=== PATIENT | male | born 1975 | race Caucasian/White ===

== ENCOUNTER 2017-12-30 16:38 | Inpatient (IN) | payer MEDICAID ==
[2017-12-30] MEDS ORDERED: Sodium Chloride 0.9% 1,000 ML IV ONE ×2 (16:50→17:55)
[2017-12-30] MEDS ORDERED: LORazepam 2 MG/ML MDV IVPUSH ONE (16:58)
[2017-12-30] MEDS ORDERED: Acetaminophen 325 MG Tab PO PRN (18:19)
[2017-12-30] MEDS ORDERED: Ibuprofen 400 MG Tab PO PRN (18:19)
[2017-12-30] MEDS ORDERED: Zolpidem 5 MG Tab PO PRN (18:19)
[2017-12-30] MEDS ORDERED: Magnesium Oxide 400 MG Tab PO ONE (18:29)
[2017-12-30] MEDS ORDERED: Metoprolol Tartrate 25 MG Tab PO PRN (18:29)
[2017-12-30] MEDS ORDERED: Sodium Chloride 0.9% 10 ML Syringe FLUSH PRN ×2 (18:29)
[2017-12-30] MEDS ORDERED: cloNIDine 0.1 MG Tab PO PRN (18:29)
[2017-12-30] MEDS ORDERED: Thiamine 200 MG/2 ML MDV IM ONE (18:29)
[2017-12-30] MEDS ORDERED: Pantoprazole 40 MG Vial IV SCH (18:30)
[2017-12-30] MEDS ORDERED: chlordiazePOXIDE 25 MG Cap PO SCH ×2 (18:30)
[2017-12-30] MEDS: Dextrose 5%-0.9% NaCl 1,000 ML IV SCH (19:10)
[2017-12-30] MEDS: Potassium Chloride 10% 20 MEQ/15 ML Soln 15 ML UD Cup PO SCH (20:22)
[2017-12-31] MEDS: Dextrose 5%-0.9% NaCl 1,000 ML IV SCH ×2 (03:07→11:49)
[2017-12-31] MEDS: Potassium Chloride 10% 20 MEQ/15 ML Soln 15 ML UD Cup PO SCH ×2 (08:17→22:27)
[2017-12-31] MEDS: Folic Acid 1 MG Tab PO SCH (08:17)
[2017-12-31] MEDS: Multivitamin Tab PO SCH (08:17)
--- NOTE | 2017-12-31 08:21 | PCM.HP ---
H&P History of Present Illness - General Date of Service: 12/31/17 Admit Problem/Dx: Admission Diagnosis/Problem Admission Diagnosis/Problem Alcohol dependence with withdrawal with perceptual disturbance Source of Information: Patient History Limitations: Reports: Altered Mental Status - History of Present Illness Initial Comments - Free Text/Narative: This is a 42-year-old male patient but states that he was brought from [place] in [place] to be placed in the hospital. He does not know why. The nurses states that he was he was in intermediate and started having what the please felt as DTs was brought here for withdrawal. Patient states he drinks 6 beers every day and 12 on Saturdays and Sundays. He denies smoking or recreational drug use. He' s been in treatment several years ago. He says he is quit drinking several times in the past without any problems. Patient states he feels guilty for drinking, says others criticize his drinking. He denies eating and I'll put her. - Related Data Allergies/Adverse Reactions: Allergies Allergy/AdvReac Type Severity Reaction Status Date / Time No Known Allergies Allergy Verified 12/30/17 17:44 Home Medications: Home Meds NK [No Known Home Meds] 04/15/14 [History] Past Medical History - Past Health History Medical/Surgical History: Denies Medical/Surgical History Other Psychiatric History: does not take any meds anymore Social & Family History - Family History Family Medical History: Unobtainable Psychiatric: Reports: Suicide Attempt, Other (See Below) Other Psychiatric Family History: MOTHER COMMITTED SUICIDE - Tobacco Use Smoking Status *Q: Never Smoker Years of Tobacco use: 25 Second Hand Smoke Exposure: No - Caffeine Use Caffeine Use: Reports: None - Alcohol Use Days Per Week of Alcohol Use: 7 Number of Drinks Per Day: 6 Total Drinks Per Week: 42 Date of Last Drink: 12/26/17 Time of Last Drink: 21:00 - Recreational Drug Use Recreational Drug Use: No H&P Review of Systems - Review of Systems: Review Of Systems: See Below General: Reports: No Symptoms HEENT: Reports: No Symptoms Pulmonary: Reports: No Symptoms Cardiovascular: Reports: No Symptoms Gastrointestinal: Reports: No Symptoms Genitourinary: Reports: No Symptoms Musculoskeletal: Reports: No Symptoms Skin: Reports: No Symptoms Psychiatric: Reports: No Symptoms Neurological: Reports: No Symptoms Hematologic/Lymphatic: Reports: No Symptoms Immunologic: Reports: No Symptoms Exam - Exam Exam: See Below - Vital Signs Vital Signs: Last Vital Signs Temp 97.6 F 12/31/17 07:27 Pulse 98 12/31/17 07:27 Resp 16 12/31/17 07:27 BP 120/77 12/31/17 07:27 Pulse Ox 99 12/31/17 07:27 Weight: 149 lb 7 oz - Exam General: Alert, Cooperative. No: Oriented HEENT: Hearing Intact, Posterior Pharynx Clear, TMs Clear Neck: Supple, Trachea Midline Lungs: Clear to Auscultation, Normal Respiratory Effort. No: Crackles, Rales, Rhonchi Cardiovascular: Regular Rate, Regular Rhythm. No: Systolic Murmur, Diastolic Murmur GI/Abdominal Exam: Normal Bowel Sounds, Soft, Non-Tender, No Organomegaly, No Distention, No Abnormal Bruit, No Mass Back Exam: Normal Inspection, Full Range of Motion Extremities: Normal Inspection, Normal Range of Motion, No Pedal Edema Skin: Warm, Dry, Intact Neurological: Normal Tone Neuro Extensive - Mental Status: Alert, Normal Mood/Affect, Other (Patient is oriented to place. He thinks it is February and the president is [employer].). No: Oriented x3, Normal Cognition Psychiatric: Alert, Normal Affect, Normal Mood - Patient Data Lab Results Last 24 hrs: Laboratory Results - last 24 hr 12/31/17 12/31/17 12/31/17 Range/Units 05:50 06:00 06:00 Sodium 139 (135-145) mmol/L Potassium 3.0 L (3.5-5.3) mmol/L Chloride 106 D (100-110) mmol/L Carbon Dioxide 24 (21-32) mmol/L BUN 11 D (7-18) mg/dL Creatinine 0.6 L (0.70-1.30) mg/dL Est Cr Clr Drug Dosing 150.63 mL/min Estimated GFR (MDRD) > 60 (>60) BUN/Creatinine Ratio 18.3 (9-20) Glucose 108 (80-116) mg/dL Calcium 8.6 D (8.6-10.2) mg/dL Total Bilirubin 1.1 (0.1-1.3) mg/dL AST 67 H D (5-25) IU/L ALT 94 H D (12-36) U/L Alkaline Phosphatase 52 L (56-112) IU/L Total Protein 5.8 L (6.0-8.0) g/dL Albumin 3.1 L (3.5-5.2) g/dL Globulin 2.7 g/dL Albumin/Globulin Ratio 1.2 Urine Color Yellow (YELLOW) Urine Appearance Clear (CLEAR) Urine pH 6.0 (5.0-6.5) Ur Specific [place] 1.015 (1.010-1.025) Urine Protein Negative (NEGATIVE) mg/dL Urine Glucose (UA) Normal (NEGATIVE) mg/dL Urine Ketones 15 H (NEGATIVE) mg/dL Urine Occult Blood Negative (NEGATIVE) Urine Nitrite Negative (NEGATIVE) Urine Bilirubin Negative (NEGATIVE) Urine Urobilinogen 1 H (NEGATIVE) mg/dL Ur Leukocyte Esterase Negative (NEGATIVE) Urine RBC 0-5 (0) Urine WBC 5-10 (0) Ur Squamous Epith Cells Few H (NS,R,O) Urine Bacteria Rare H (NS) Hyaline Casts Few H (NS) Coarse Granular Casts Few H (NS) Urine Mucus Few H (NS) Urine Opiates Screen Negative (NEGATIVE) Ur Oxycodone Screen Negative (NEGATIVE) Ur Propoxyphene Screen Negative (NEGATIVE) Ur Barbituates Screen Negative (NEGATIVE) Ur Tricyclics Screen Negative (NEGATIVE) Ur Phencyclidine Scrn Negative (NEGATIVE) Ur Amphetamine Screen Negative (NEGATIVE) Urine MDMA Screen Negative (NEGATIVE) U Benzodiazepines Scrn Positive H (NEGATIVE) U Cocaine Metab Screen Negative (NEGATIVE) U Marijuana (THC) Screen Negative (NEGATIVE) Result Diagrams: 12/30/17 16:55 12/31/17 05:50 *Q Meaningful Use (ADM) - VTE *Q VTE Criteria *Q: VTE Anticoagulation Contraindications: Med/TX Not Indicated/Need - Stroke *Q Stroke Criteria *Q: - AMI *Q AMI Criteria *Q: - Problem List (1) Alcohol withdrawal SNOMED Code(s): 906477016 ICD Code: F10.239 - ALCOHOL DEPENDENCE WITH WITHDRAWAL, UNSPECIFIED Status : Acute Current Visit: Yes (2) Alcohol abuse SNOMED Code(s): 41327256 ICD Code: F10.10 - ALCOHOL ABUSE, UNCOMPLICATED Status: Acute Current Visit: Yes Problem List Initiated/Reviewed/Updated: Yes Orders Last 24hrs: Active Orders 24 hr Category Date Time Status Assess Neurological Status [RC] ASDIRECTED Care 12/30/17 18:29 Active CIWAA Assessment [RC] Q1H Care 12/30/17 18:29 Active Notify Provider [RC] PRN Care 12/30/17 18:29 Active Dextrose 5%-0.9% NaCl [Dextrose 5%-Normal Saline] 1,000 Med 12/30/17 18:30 Active ml IV ASDIRECTED Folic Acid Med 12/31/17 09:00 Active 1 mg PO DAILY LORazepam [Ativan] Med 12/30/17 19:27 Active See Protocol PO ASDIRECTED PRN Metoprolol Tartrate [Lopressor] Med 12/30/17 18:29 Active 25 mg PO Q6H PRN Multivitamins [Tab-A-Florin] Med 12/31/17 09:00 Active 1 tab PO DAILY Pantoprazole [ProTONIX IV] Med 12/31/17 18:00 Active 40 mg IV Q24H Potassium Chloride [Potassium Chloride Solution] Med 12/30/17 21:00 Active 40 meq PO BID Sodium Chloride 0.9% [Saline Flush] Med 12/30/17 18:29 Active 10 ml FLUSH ASDIRECTED PRN Sodium Chloride 0.9% [Saline Flush] Med 12/30/17 18:29 Active 10 ml FLUSH ASDIRECTED PRN cloNIDine [Catapres] Med 12/30/17 18:29 Active 0.1 mg PO Q6H PRN Peripheral IV Insertion Adult [OM.PC] Urgent Oth 12/30/17 18:29 Ordered Seizure Precautions [OM.PC] Routine Oth 12/30/17 18:29 Ordered Medication Orders Acetaminophen (Tylenol) 650 mg PO Q4H PRN PRN Reason: Pain (Mild 1-3)/fever Clonidine HCl (Catapres) 0.1 mg PO Q6H PRN PRN Reason: Adrenergic Systems Folic Acid (Folic Acid) 1 mg PO DAILY MATHIEU Dextrose/Sodium Chloride (Dextrose 5%-Normal Saline) 1,000 mls @ 125 mls/hr IV ASDIRECTED MATHIEU Last Admin: 12/31/17 03:07 Dose: 125 mls/hr Infusion: 12/31/17 03:07 Dose: 125 mls/hr Admin: 12/30/17 19:10 Dose: 125 mls/hr Ibuprofen (Motrin) 400 mg PO Q6H PRN PRN Reason: Pain (mild 1-3) Lorazepam (Ativan) 0 mg PO ASDIRECTED PRN; Protocol PRN Reason: Agitation Metoprolol Tartrate (Lopressor) 25 mg PO Q6H PRN PRN Reason: See Label Comment Multivitamins/Minerals/Vitamin C (Tab-A-Florin) 1 tab PO DAILY MATHIEU Pantoprazole Sodium (Protonix Iv) 40 mg IV Q24H MATHIEU Potassium Chloride (Potassium Chloride Solution) 40 meq PO BID MATHIEU Stop: 01/01/18 09:01 Last Admin: 12/30/17 20:22 Dose: 40 meq Sodium Chloride (Saline Flush) 10 ml FLUSH ASDIRECTED PRN PRN Reason: Keep Vein Open Sodium Chloride (Saline Flush) 10 ml FLUSH ASDIRECTED PRN PRN Reason: Keep Vein Open Zolpidem Tartrate (Ambien) 5 mg PO BEDTIME PRN PRN Reason: Sleep Assessment/Plan Comment:: 1. Admit inpatient. 2. Alcohol withdrawal protocol. 3. Regular diet. 4. Up ad frank. 5. Can shower.
--- NOTE | 2017-12-31 08:51 | CT ---
INDICATION: Confusion, question alcohol withdrawal. CT HEAD WITHOUT CONTRAST: 2.5 and 5-mm images were obtained contiguously through the brain without contrast. Total Exam DLP = 949.36 mGy-cm. Visualized paranasal sinuses and mastoid air cells were well aerated. No cranial abnormality was suggested. No shift of midline structures, significant ventricular abnormalities, or abnormal areas of density could be identified. There is asymmetry of the lateral ventricles which likely is a normal variant, but could be related to some loss of brain tissue on the left, the left lateral ventricle being more prominent. More likely, this is a normal variant - developmental anomaly. IMPRESSION: Essentially normal CT brain without contrast. Report was called to Dr. Castanon at 1800 hours, 12/30/2017. [facility]
[2017-12-31] MEDS: LORazepam 1 MG Tab PO PRN ×3 (09:22→21:33)
[2017-12-31] MEDS: Thiamine 100 MG Tab PO SCH (12:31)
[2017-12-31] MEDS ORDERED: Pantoprazole 40 MG Vial IV SCH (18:00)
[2018-01-01] MEDS: LORazepam 1 MG Tab PO PRN ×3 (01:30→21:24)
--- NOTE | 2018-01-01 08:37 | PCM.PN ---
- General Info Date of Service: 01/01/18 Admission Dx/Problem (Free Text): Patient states he feels better today. The nurses report his confusion is somewhat better today. He states he has less shakiness. - Patient Data Vitals - Most Recent: Last Vital Signs Temp 98.1 F 01/01/18 04:20 Pulse 84 01/01/18 04:20 Resp 16 01/01/18 04:20 BP 116/76 01/01/18 04:20 Pulse Ox 99 01/01/18 04:20 Weight - Most Recent: 146 lb 14.4 oz I&O - Last 24 Hours: Intake & Output 12/31/17 01/01/18 01/01/18 22:59 06:59 14:59 Intake Total 800 Output Total 500 Balance 300 Lab Results Last 24 Hours: Laboratory Results - last 24 hr 01/01/18 Range/Units 06:35 Sodium 140 (135-145) mmol/L Potassium 3.5 (3.5-5.3) mmol/L Chloride 108 (100-110) mmol/L Carbon Dioxide 24 (21-32) mmol/L BUN 4 L (7-18) mg/dL Creatinine 0.6 L (0.70-1.30) mg/dL Est Cr Clr Drug Dosing 148.07 mL/min Estimated GFR (MDRD) > 60 (>60) BUN/Creatinine Ratio 6.7 L (9-20) Glucose 110 (80-116) mg/dL Calcium 8.8 (8.6-10.2) mg/dL Total Bilirubin 0.4 (0.1-1.3) mg/dL AST 85 H D (5-25) IU/L ALT 127 H D (12-36) U/L Alkaline Phosphatase 57 (56-112) IU/L Total Protein 5.8 L (6.0-8.0) g/dL Albumin 3.1 L (3.5-5.2) g/dL Globulin 2.7 g/dL Albumin/Globulin Ratio 1.2 Med Orders - Current: Current Medications Acetaminophen (Tylenol) 650 mg PO Q4H PRN PRN Reason: Pain (Mild 1-3)/fever Folic Acid (Folic Acid) 1 mg PO DAILY MATHIEU Last Admin: 12/31/17 08:17 Dose: 1 mg Ibuprofen (Motrin) 400 mg PO Q6H PRN PRN Reason: Pain (mild 1-3) Lorazepam (Ativan) 0 mg PO ASDIRECTED PRN; Protocol PRN Reason: Agitation Last Admin: 01/01/18 01:30 Dose: 1 mg Multivitamins/Minerals/Vitamin C (Tab-A-Florin) 1 tab PO DAILY [facility] Last Admin: 12/31/17 08:17 Dose: 1 tab Pantoprazole Sodium (Protonix Iv) 40 mg IV Q24H [facility] Last Admin: 12/31/17 17:52 Dose: 40 mg Potassium Chloride (Potassium Chloride Solution) 40 meq PO BID [facility] Stop: 01/01/18 09:01 Last Admin: 12/31/17 22:27 Dose: 40 meq Sodium Chloride (Saline Flush) 10 ml FLUSH ASDIRECTED PRN PRN Reason: Keep Vein Open Last Admin: 12/31/17 17:56 Dose: 10 ml Sodium Chloride (Saline Flush) 10 ml FLUSH ASDIRECTED PRN PRN Reason: Keep Vein Open Thiamine HCl (Vitamin B-1) 100 mg PO DAILY [facility] Last Admin: 12/31/17 12:31 Dose: 100 mg Discontinued Medications Chlordiazepoxide HCl (Librium) 25 mg PO Q8H [facility] Last Admin: 12/30/17 20:06 Dose: Not Given Chlordiazepoxide HCl (Librium) 50 mg PO Q4H [facility] PRN Reason: Taper Stop: 01/03/18 18:29 Last Admin: 12/30/17 20:07 Dose: Not Given Clonidine HCl (Catapres) 0.1 mg PO Q6H PRN PRN Reason: Adrenergic Systems Sodium Chloride (Normal Saline) 1,000 mls @ 999 mls/hr IV .BOLUS ONE Stop: 12/30/17 18:55 Last Admin: 12/30/17 17:55 Dose: 999 mls/hr Dextrose/Sodium Chloride (Dextrose 5%-Normal Saline) 1,000 mls @ 125 mls/hr IV ASDIRECTED [facility] Last Admin: 12/31/17 11:49 Dose: 125 mls/hr Sodium Chloride (Normal Saline) 1,000 mls @ 999 mls/hr IV .BOLUS ONE Stop: 12/30/17 17:50 Last Admin: 12/30/17 16:55 Dose: 999 mls/hr Lorazepam (Ativan) 1 mg IVPUSH ONETIME ONE Stop: 02/13/18 16:59 Last Admin: 12/30/17 17:06 Dose: 1 mg Magnesium Oxide (Magnesium Oxide) 400 mg PO ONETIME ONE Stop: 12/30/17 18:30 Last Admin: 12/30/17 20:20 Dose: 400 mg Metoprolol Tartrate (Lopressor) 25 mg PO Q6H PRN PRN Reason: See Label Comment Pantoprazole Sodium (Protonix Iv) 40 mg IV DAILY MATHIEU Last Admin: 12/30/17 20:22 Dose: 40 mg Thiamine HCl (Vitamin B-1) 100 mg IM ONETIME ONE Stop: 12/30/17 18:30 Last Admin: 12/30/17 20:21 Dose: 100 mg Zolpidem Tartrate (Ambien) 5 mg PO BEDTIME PRN PRN Reason: Sleep - Exam General: Alert, Oriented, Cooperative Lungs: Clear to Auscultation, Normal Respiratory Effort Cardiovascular: Regular Rate, Regular Rhythm, No Murmurs Extremities: Normal Inspection Neurological: Other (No tremors) Psy/Mental Status: Alert, Normal Affect, Normal Mood - Problem List & Annotations (1) Alcohol withdrawal SNOMED Code(s): 122432098 Code(s): F10.239 - ALCOHOL DEPENDENCE WITH WITHDRAWAL, UNSPECIFIED Status: Acute Current Visit: Yes (2) Alcohol abuse SNOMED Code(s): 21487398 Code(s): F10.10 - ALCOHOL ABUSE, UNCOMPLICATED Status: Acute Current Visit: Yes - Problem List Review Problem List Initiated/Reviewed/Updated: Yes - My Orders Last 24 Hours: My Active Orders 12/31/17 11:00 Thiamine [Vitamin B-1] 100 mg PO DAILY 12/31/17 13:11 Transfer Patient (Change bed) [ADT] Routine Telemetry Monitoring [Cardiac Monitoring] [RC] 08,16,00 12/31/17 17:41 Activity as Tolerated [RC] .Routine Up With Assistance [RC] ASDIRECTED - Plan Plan:: 1. Patient slowly improving. Continue current care.
[2018-01-01] MEDS: Potassium Chloride 10% 20 MEQ/15 ML Soln 15 ML UD Cup PO SCH (09:38)
[2018-01-01] MEDS: Folic Acid 1 MG Tab PO SCH (09:38)
[2018-01-01] MEDS: Multivitamin Tab PO SCH (09:39)
[2018-01-01] MEDS: Thiamine 100 MG Tab PO SCH (09:39)
--- NOTE | 2018-01-01 11:40 | ER ---
DATE SEEN: 12/30/2017 HISTORY: This 42-year-old man was brought [facility], as he was picked up for DWI last night, and now they are concerned about going through alcohol withdrawal. When I asked why he was here, the patient states he just had come from [facility] (He is confused because he really did not come from [facility], but I think he was in [facility] prior to this). In fact his citation which he has with him says he was in violation and had DWI on 12/29/2017 which reflects what happened in [facility]. It took a call to the [facility] in [place] to discern what really happened. They were more informative than the patient. The patient is confused and does not know what is going on. PRIMARY SURVEY: The patient is mildly agitated and restless, more restless than agitated. He is cooperative, but he does not know what really goes on. He has a little tongue fasciculation, mild tremor. No seizure activity. PHYSICAL EXAMINATION: VITAL SIGNS: Blood pressure 138/84, heart rate 81, respirations 16, oxygen saturation 97%, temperature is 36.6 degrees centigrade. GENERAL: He is unshaven and disability-[place] is 15. EXTREMITIES: Total body exposure, no evidence for laceration. There were several areas of ecchymosis scattered, but minimal, nontender. SECONDARY EXAM: HEENT: PERRLA intact. He has dysconjugate gaze. There is definite strabismus. His left eye is one that is lazy, but he does deny diplopia. His light reflex is very symmetrical. Pharynx: Mucosa is dry. Fissured tongue. I think he has small blood crust on his lips. Teeth without chips or abnormality. No ecchymoses on his face. No tenderness to palpation of the scalp. Mouth: Mild tongue fasciculation. NECK: No bruits. No thyromegaly. No masses. No cervical adenopathy. LUNGS: Clear, with occasional scattered rales, otherwise clear. HEART: S1, S2. No murmur. No chest wall discomfort. ABDOMEN: Soft. No hepatosplenomegaly, guarding or abdominal discomfort. Mild, not scaphoid, but he has asthenic body habitus. EXTREMITIES: Lower extremities with an abrasion, otherwise no laceration. Deep tendon reflexes, slightly hyperactive. Mild tremor. No pronator drift. No paresis, weakness, and has mild dysmetria. Alcohol withdrawal is the initial impression. FAMILY HISTORY: Significant in that mother committed suicide. He has had suicidal attempts in the past. LABORATORY REPORTS: Head CT is normal. There are multiple laboratory abnormalities. Hemoglobin is normal at 13.6. White count normal 11,100, PMNs slightly elevated and neutrophilia of 83, lymphs 4, no eosinophils, and platelets 183,000, low normal platelets, probably secondary to ethanolism. The sodium is 135, potassium low at 3.0, chloride low 96, CO2 of 18. The latter reflects metabolic acidosis dehydration. BUN elevated at 23 with a creatinine of 1.2. BUN and creatinine ratio 23, mild due to dehydration. Reactive glucose elevation 146, calcium is high at 10.6, total protein 8.2, albumin is normal 4.6, so etiology for elevated calcium indeterminate, rule out hyperparathyroidism, but at this point, I do not plan to explore this. He has liver involved enzyme abnormality. AST is 85, ALT is 129, and total bilirubin 1.5 reflecting alcoholic hepatitis inflammatory response. Urine exam: Few granular casts, few urine mucus, and no bacteria. All these latter suggests dehydration and renal insult of dehydration, positive benzos noted on the urine tests, otherwise no amphetamines. Alcohol is less than 0.03. The patient needs to be admitted for alcohol therapy withdrawal to prevent DTs and potential seizure complication. Ativan was given per preference of nurses. The patient admitted to the [facility]. CT of his head was negative. DIAGNOSES: 1. Alcoholism, alcohol dependence. 2. Early withdrawal. 3. Depression. 4. Suicidal history in the past. 5. Asthenia. Muscle wasting secondary to alcohol use. 6. Hypokalemia, hypochloremia, mild metabolic acidosis with alcohol-induced hepatitis. PLAN: The patient admitted and we will have him started on [facility] protocol with Librium. /[id number] RAYSHAWN/EILEEN
[2018-01-02] MEDS: Thiamine 100 MG Tab PO SCH (08:26)
[2018-01-02] MEDS: Multivitamin Tab PO SCH (08:26)
[2018-01-02] MEDS: Folic Acid 1 MG Tab PO SCH (08:26)
--- NOTE | 2018-01-02 13:09 | PCM.PN ---
- General Info Date of Service: 01/02/18 Functional Status: Reports: Tolerating Diet, Ambulating, Urinating. Denies: New Symptoms - Review of Systems Neurological: Reports: Confusion (improved but still disoriented to place and recent events. ), Tremors (mild), Difficulty Walking (improved. ). Denies: Dizziness, Headache, Numbness, Paresthesia, Seizure, Syncope, Trouble Speaking Psychiatric: Reports: Confusion - Patient Data Vitals - Most Recent: Last Vital Signs Temp 99.3 F 01/02/18 08:16 Pulse 66 01/02/18 08:16 Resp 17 01/02/18 08:16 BP 132/83 01/02/18 08:16 Pulse Ox 99 01/02/18 08:16 Weight - Most Recent: 65.181 kg I&O - Last 24 Hours: Intake & Output 01/01/18 01/02/18 01/02/18 22:59 06:59 14:59 Intake Total 700 350 Balance 700 350 Med Orders - Current: Current Medications Acetaminophen (Tylenol) 650 mg PO Q4H PRN PRN Reason: Pain (Mild 1-3)/fever Folic Acid (Folic Acid) 1 mg PO DAILY [facility] Last Admin: 01/02/18 08:26 Dose: 1 mg Ibuprofen (Motrin) 400 mg PO Q6H PRN PRN Reason: Pain (mild 1-3) Lorazepam (Ativan) 0 mg PO ASDIRECTED PRN; Protocol PRN Reason: Agitation Last Admin: 01/01/18 21:24 Dose: 1 mg Multivitamins/Minerals/Vitamin C (Tab-A-Florin) 1 tab PO DAILY [facility] Last Admin: 01/02/18 08:26 Dose: 1 tab Sodium Chloride (Saline Flush) 10 ml FLUSH ASDIRECTED PRN PRN Reason: Keep Vein Open Last Admin: 12/31/17 17:56 Dose: 10 ml Sodium Chloride (Saline Flush) 10 ml FLUSH ASDIRECTED PRN PRN Reason: Keep Vein Open Thiamine HCl (Vitamin B-1) 100 mg PO DAILY [facility] Last Admin: 01/02/18 08:26 Dose: 100 mg Discontinued Medications Chlordiazepoxide HCl (Librium) 25 mg PO Q8H [facility] Last Admin: 12/30/17 20:06 Dose: Not Given Chlordiazepoxide HCl (Librium) 50 mg PO Q4H [facility] PRN Reason: Taper Stop: 01/03/18 18:29 Last Admin: 12/30/17 20:07 Dose: Not Given Clonidine HCl (Catapres) 0.1 mg PO Q6H PRN PRN Reason: Adrenergic Systems Sodium Chloride (Normal Saline) 1,000 mls @ 999 mls/hr IV .BOLUS ONE Stop: 12/30/17 18:55 Last Admin: 12/30/17 17:55 Dose: 999 mls/hr Dextrose/Sodium Chloride (Dextrose 5%-Normal Saline) 1,000 mls @ 125 mls/hr IV ASDIRECTED [facility] Last Admin: 12/31/17 11:49 Dose: 125 mls/hr Sodium Chloride (Normal Saline) 1,000 mls @ 999 mls/hr IV .BOLUS ONE Stop: 12/30/17 17:50 Last Admin: 12/30/17 16:55 Dose: 999 mls/hr Lorazepam (Ativan) 1 mg IVPUSH ONETIME ONE Stop: 12/30/17 16:59 Last Admin: 12/30/17 17:06 Dose: 1 mg Magnesium Oxide (Magnesium Oxide) 400 mg PO ONETIME ONE Stop: 12/30/17 18:30 Last Admin: 12/30/17 20:20 Dose: 400 mg Metoprolol Tartrate (Lopressor) 25 mg PO Q6H PRN PRN Reason: See Label Comment Pantoprazole Sodium (Protonix Iv) 40 mg IV DAILY [facility] Last Admin: 12/30/17 20:22 Dose: 40 mg Pantoprazole Sodium (Protonix Iv) 40 mg IV Q24H [facility] Last Admin: 12/31/17 17:52 Dose: 40 mg Potassium Chloride (Potassium Chloride Solution) 40 meq PO BID MATHIEU Stop: 01/01/18 09:01 Last Admin: 01/01/18 09:38 Dose: 40 meq Thiamine HCl (Vitamin B-1) 100 mg IM ONETIME ONE Stop: 12/30/17 18:30 Last Admin: 12/30/17 20:21 Dose: 100 mg Zolpidem Tartrate (Ambien) 5 mg PO BEDTIME PRN PRN Reason: Sleep - Exam General: Alert, Cooperative, No Acute Distress HEENT: Pupils Equal, Mucous Membr. Moist/Blanding Neck: Supple Lungs: Clear to Auscultation, Normal Respiratory Effort Cardiovascular: Regular Rate, Regular Rhythm GI/Abdominal Exam: Normal Bowel Sounds, Soft, Non-Tender Back Exam: Normal Inspection Extremities: Normal Inspection Skin: Warm. No: Rash Neurological: Strength Equal Bilateral, Cranial Nerves Intact Psy/Mental Status: Normal Mood, Withdrawal Symptoms (minimal/improved cognition- tremulousness.) - Problem List & Annotations (1) Alcohol abuse SNOMED Code(s): 47495277 Code(s): F10.10 - ALCOHOL ABUSE, UNCOMPLICATED Status: Acute Current Visit: Yes (2) Alcohol withdrawal SNOMED Code(s): 296972588 Code(s): F10.239 - ALCOHOL DEPENDENCE WITH WITHDRAWAL, UNSPECIFIED Status: Acute Current Visit: Yes Qualifiers: Complication of substance-induced condition: with perceptual disturbance Qualified Code(s): F10.232 - Alcohol dependence with withdrawal with perceptual disturbance - Problem List Review Problem List Initiated/Reviewed/Updated: Yes - My Orders Last 24 Hours: My Active Orders 01/02/18 12:40 AMMONIA [REF] Routine - Assessment Assessment:: see above. - Plan Plan:: Social work has been involved in this patient's care. A but told report has been followed with the [facility] as he is not able to care for himself appropriately in his own home. Currently has water but no electricity. He's not been eating with poor nutrition. Does have a brother, Oscar who agrees to take him home and care for home as well as ongoing work with adoption social worker for home health aide in the interim. It is my hope that he can get into a chemical dependency center for alcohol abuse/dependence. His brother has take his keys and he will not be able to drive. He has court dates already pending. I did speak with his family and they are in agreement with the plan of care. He will see Dr. Bry MD as a new patient for ongoing continuity of cares.
--- NOTE | 2018-01-02 16:23 | PCM.DCSUM1 ---
Discharge Summary - Hospital Course Brief History: 42-year-old male who was brought in by [place] [employer] after having been arrested and in group home for a few days secondary to DWI. Exhibiting symptoms of withdrawal prompted their concern. - Discharge Data Discharge Date: 01/02/18 Discharge Disposition: Home, Self-Care 01 Condition: Stable - Discharge Diagnosis/Problem(s) (1) Alcohol withdrawal SNOMED Code(s): 215666889 ICD Code: F10.239 - ALCOHOL DEPENDENCE WITH WITHDRAWAL, UNSPECIFIED Status : Acute Current Visit: Yes Qualifiers: Complication of substance-induced condition: with perceptual disturbance Qualified Code(s): F10.232 - Alcohol dependence with withdrawal with perceptual disturbance (2) Alcohol abuse SNOMED Code(s): 32384681 ICD Code: F10.10 - ALCOHOL ABUSE, UNCOMPLICATED Status: Chronic Current Visit: Yes (3) Inability to perform activities of daily living SNOMED Code(s): 859806771 ICD Code: R53.81 - OTHER MALAISE Status: Chronic Current Visit: Yes - Patient Summary/Data Consults: Consultations 01/01/18 09:20 PT Evaluation and Treatment [CONS] Routine Please Evaluate and Treat. PT Reason for Consult: Ambulation This query below is only for informational purposes and is not editable. Admission Diagnosis/Problem: Alcohol dependence with withdrawal with perceptual disturbance 01/01/18 09:22 OT Evaluation and Treatment [CONS] Routine Please Evaluate and Treat. OT Reason for Consult: ADL's Special Instructions: and discharge planning This query below is only for informational purposes and is not editable. Admission Diagnosis/Problem: Alcohol dependence with withdrawal with perceptual disturbance Cops. Hospital Course: Patient was admitted to ICU for close neurologic cardiac monitoring secondary to concern for alcohol withdrawal syndrome leading to delirium. He was maintained on CIWAA protocol and did not require any significant dose of librium for symptoms. Head CT was otherwise negative for any evidence of cardiovascular, traumatic or neurologic disease. He was hydrated with improvement in his sensorium. Eating and drinking. Up and ambulating with physical therapy in the hallways. Balance and gait significantly improved. He denied any concerns today. Continues to have some confusion regarding recent events.He'll be going home with his brother Oscar and is agreeable to this. He does have ongoing forensic social worker regarding vulnerable adult status with regards to inability to care for himself at home due to his disease. It is recommended he received chemical dependency treatment in the future. His family follows with Dr. Bry MD at [facility] in [place] and wishes for him to be seen by Dr. Bry MD as well in follow-up. - Patient Instructions Diet: Regular Diet as Tolerated, No Alcoholic Beverages Activity: As Tolerated Driving: Do Not Drive Showering/Bathing: May Shower, No Tub Bathing/Swimming Notify Provider of: Fever, Nausea and/or Vomiting - Discharge Plan Prescriptions/Med Rec: Folic Acid 1 mg PO DAILY #90 tablet Multivitamins [Tab-A-Florin] 1 tab PO DAILY #90 tablet Thiamine [Vitamin B-1] 100 mg PO DAILY #90 tablet Home Medications: Home Meds Folic Acid 1 mg PO DAILY #90 tablet 01/02/18 [Rx] Multivitamins [Tab-A-Florin] 1 tab PO DAILY #90 tablet 01/02/18 [Rx] Thiamine [Vitamin B-1] 100 mg PO DAILY #90 tablet 01/02/18 [Rx] Forms: ED Department Discharge Referrals: PCP,None [Primary Care Provider] - (Follow-up with Dr. Susan MD as scheduled. Appt card sent with family.) - Discharge Summary/Plan Comment DC Time >30 min.: Yes Discharge Summary/Plan Comment: please see above. - General Info Date of Service: 01/02/18 Functional Status: Reports: Tolerating Diet, Ambulating, Urinating. Denies: New Symptoms - Review of Systems General: Reports: Appetite. Denies: Fever, Chills HEENT: Denies: Dysphasia, Headaches, Visual Changes Pulmonary: Denies: Shortness of Breath, Cough Cardiovascular: Denies: Chest Pain, Palpitations, Lightheadedness Gastrointestinal: Denies: Abdominal Pain, Nausea, Vomiting Genitourinary: Denies: Dysuria, Flank Pain Musculoskeletal: Denies: Neck Pain, Joint Pain Skin: Denies: Jaundice, Diaphoresis Neurological: Reports: Confusion, Tremors. Denies: Numbness, Tingling Psychiatric: Denies: Agitation - Patient Data Vitals - Most Recent: Last Vital Signs Temp 98 F 01/02/18 16:00 Pulse 68 01/02/18 16:00 Resp 16 01/02/18 16:00 BP 118/62 01/02/18 16:00 Pulse Ox 99 02/16/18 16:00 Weight - Most Recent: 65.181 kg I&O - Last 24 hours: Intake & Output 01/02/18 01/02/18 01/02/18 06:59 14:59 22:59 Intake Total 350 800 Balance 350 800 Lab Results - Last 24 hrs: Laboratory Tests 12/30/17 12/30/17 12/30/17 Range/Units 16:55 16:55 16:55 WBC 11.1 (4.5-12.0) X10-3/uL RBC 4.07 L (4.30-5.75) x10(6)uL Hgb 13.6 (11.5-15.5) g/dL Hct 40.0 (30.0-51.3) % MCV 98.3 H (80-96) fL MCH 33.4 (27.7-33.6) pg MCHC 34.0 (32.2-35.4) g/dL RDW 13.1 (11.5-15.5) % Plt Count 183 (125-369) X10(3)uL MPV 8.2 (7.4-10.4) fL Neut % (Auto) 83.4 H (46-82) % Lymph % (Auto) 4.4 L (13-37) % Marin % (Auto) 11.9 (4-12) % Eos % (Auto) 0 L (1.0-5.0) % Baso % (Auto) 0 (0-2) % Neut # (Auto) 9.3 H (1.6-8.3) # Lymph # (Auto) 0.5 L (0.6-5.0) # Marin # (Auto) 1.3 (0.0-1.3) # Eos # (Auto) 0.0 (0.0-0.8) # Baso # (Auto) 0.0 (0.0-0.2) # Sodium 135 (135-145) mmol/L Potassium 3.0 L (3.5-5.3) mmol/L Chloride 96 L (100-110) mmol/L Carbon Dioxide 18 L (21-32) mmol/L BUN 28 H (7-18) mg/dL Creatinine 1.2 (0.70-1.30) mg/dL Est Cr Clr Drug Dosing TNP Estimated GFR (MDRD) > 60 (>60) BUN/Creatinine Ratio 23.3 H (9-20) Glucose 146 H (80-116) mg/dL Calcium 10.6 H (8.6-10.2) mg/dL Magnesium (1.8-2.5) mg/dL Total Bilirubin 1.5 H (0.1-1.3) mg/dL AST 85 H (5-25) IU/L ALT 129 H (12-36) U/L Alkaline Phosphatase 79 (56-112) IU/L Total Protein 8.2 H (6.0-8.0) g/dL Albumin 4.6 (3.5-5.2) g/dL Globulin 3.6 g/dL Albumin/Globulin Ratio 1.3 Urine Color (YELLOW) Urine Appearance (CLEAR) Urine pH (5.0-6.5) Ur Specific Bishop (1.010-1.025) Urine Protein (NEGATIVE) mg/dL Urine Glucose (UA) (NEGATIVE) mg/dL Urine Ketones (NEGATIVE) mg/dL Urine Occult Blood (NEGATIVE) Urine Nitrite (NEGATIVE) Urine Bilirubin (NEGATIVE) Urine Urobilinogen (NEGATIVE) mg/dL Ur Leukocyte Esterase (NEGATIVE) Urine RBC (0) Urine WBC (0) Ur Squamous Epith Cells (NS,R,O) Urine Bacteria (NS) Hyaline Casts (NS) Coarse Granular Casts (NS) Urine Mucus (NS) Urine Opiates Screen (NEGATIVE) Ur Oxycodone Screen (NEGATIVE) Ur Propoxyphene Screen (NEGATIVE) Ur Barbituates Screen (NEGATIVE) Ur Tricyclics Screen (NEGATIVE) Ur Phencyclidine Scrn (NEGATIVE) Ur Amphetamine Screen (NEGATIVE) Urine MDMA Screen (NEGATIVE) U Benzodiazepines Scrn (NEGATIVE) U Cocaine Metab Screen (NEGATIVE) U Marijuana (THC) Screen (NEGATIVE) Ethyl Alcohol < 0.03 (<0.03) % 12/30/17 12/31/17 12/31/17 Range/Units 16:55 05:50 06:00 WBC (4.5-12.0) X10-3/uL RBC (4.30-5.75) x10(6)uL Hgb (11.5-15.5) g/dL Hct (30.0-51.3) % MCV (80-96) fL MCH (27.7-33.6) pg MCHC (32.2-35.4) g/dL RDW (11.5-15.5) % Plt Count (125-369) X10(3)uL MPV (7.4-10.4) fL Neut % (Auto) (46-82) % Lymph % (Auto) (13-37) % Marin % (Auto) (4-12) % Eos % (Auto) (1.0-5.0) % Baso % (Auto) (0-2) % Neut # (Auto) (1.6-8.3) # Lymph # (Auto) (0.6-5.0) # Marin # (Auto) (0.0-1.3) # Eos # (Auto) (0.0-0.8) # Baso # (Auto) (0.0-0.2) # Sodium 139 (135-145) mmol/L Potassium 3.0 L (3.5-5.3) mmol/L Chloride 106 D (100-110) mmol/L Carbon Dioxide 24 (21-32) mmol/L BUN 11 D (7-18) mg/dL Creatinine 0.6 L (0.70-1.30) mg/dL Est Cr Clr Drug Dosing 150.63 Estimated GFR (MDRD) > 60 (>60) BUN/Creatinine Ratio 18.3 (9-20) Glucose 108 (80-116) mg/dL Calcium 8.6 D (8.6-10.2) mg/dL Magnesium 2.2 (1.8-2.5) mg/dL Total Bilirubin 1.1 (0.1-1.3) mg/dL AST 67 H D (5-25) IU/L ALT 94 H D (12-36) U/L Alkaline Phosphatase 52 L (56-112) IU/L Total Protein 5.8 L (6.0-8.0) g/dL Albumin 3.1 L (3.5-5.2) g/dL Globulin 2.7 g/dL Albumin/Globulin Ratio 1.2 Urine Color Yellow (YELLOW) Urine Appearance Clear (CLEAR) Urine pH 6.0 (5.0-6.5) Ur Specific Bishop 1.015 (1.010-1.025) Urine Protein Negative (NEGATIVE) mg/dL Urine Glucose (UA) Normal (NEGATIVE) mg/dL Urine Ketones 15 H (NEGATIVE) mg/dL Urine Occult Blood Negative (NEGATIVE) Urine Nitrite Negative (NEGATIVE) Urine Bilirubin Negative (NEGATIVE) Urine Urobilinogen 1 H (NEGATIVE) mg/dL Ur Leukocyte Esterase Negative (NEGATIVE) Urine RBC 0-5 (0) Urine WBC 5-10 (0) Ur Squamous Epith Cells Few H (NS,R,O) Urine Bacteria Rare H (NS) Hyaline Casts Few H (NS) Coarse Granular Casts Few H (NS) Urine Mucus Few H (NS) Urine Opiates Screen (NEGATIVE) Ur Oxycodone Screen (NEGATIVE) Ur Propoxyphene Screen (NEGATIVE) Ur Barbituates Screen (NEGATIVE) Ur Tricyclics Screen (NEGATIVE) Ur Phencyclidine Scrn (NEGATIVE) Ur Amphetamine Screen (NEGATIVE) Urine MDMA Screen (NEGATIVE) U Benzodiazepines Scrn (NEGATIVE) U Cocaine Metab Screen (NEGATIVE) U Marijuana (THC) Screen (NEGATIVE) Ethyl Alcohol (<0.03) % 12/31/17 01/01/18 Range/Units 06:00 06:35 WBC (4.5-12.0) X10-3/uL RBC (4.30-5.75) x10(6)uL Hgb (11.5-15.5) g/dL Hct (30.0-51.3) % MCV (80-96) fL MCH (27.7-33.6) pg MCHC (32.2-35.4) g/dL RDW (11.5-15.5) % Plt Count (125-369) X10(3)uL MPV (7.4-10.4) fL Neut % (Auto) (46-82) % Lymph % (Auto) (13-37) % Marin % (Auto) (4-12) % Eos % (Auto) (1.0-5.0) % Baso % (Auto) (0-2) % Neut # (Auto) (1.6-8.3) # Lymph # (Auto) (0.6-5.0) # Marin # (Auto) (0.0-1.3) # Eos # (Auto) (0.0-0.8) # Baso # (Auto) (0.0-0.2) # Sodium 140 (135-145) mmol/L Potassium 3.5 (3.5-5.3) mmol/L Chloride 108 (100-110) mmol/L Carbon Dioxide 24 (21-32) mmol/L BUN 4 L (7-18) mg/dL Creatinine 0.6 L (0.70-1.30) mg/dL Est Cr Clr Drug Dosing 148.07 Estimated GFR (MDRD) > 60 (>60) BUN/Creatinine Ratio 6.7 L (9-20) Glucose 110 (80-116) mg/dL Calcium 8.8 (8.6-10.2) mg/dL Magnesium (1.8-2.5) mg/dL Total Bilirubin 0.4 (0.1-1.3) mg/dL AST 85 H D (5-25) IU/L ALT 127 H D (12-36) U/L Alkaline Phosphatase 57 (56-112) IU/L Total Protein 5.8 L (6.0-8.0) g/dL Albumin 3.1 L (3.5-5.2) g/dL Globulin 2.7 g/dL Albumin/Globulin Ratio 1.2 Urine Color (YELLOW) Urine Appearance (CLEAR) Urine pH (5.0-6.5) Ur Specific Bishop (1.010-1.025) Urine Protein (NEGATIVE) mg/dL Urine Glucose (UA) (NEGATIVE) mg/dL Urine Ketones (NEGATIVE) mg/dL Urine Occult Blood (NEGATIVE) Urine Nitrite (NEGATIVE) Urine Bilirubin (NEGATIVE) Urine Urobilinogen (NEGATIVE) mg/dL Ur Leukocyte Esterase (NEGATIVE) Urine RBC (0) Urine WBC (0) Ur Squamous Epith Cells (NS,R,O) Urine Bacteria (NS) Hyaline Casts (NS) Coarse Granular Casts (NS) Urine Mucus (NS) Urine Opiates Screen Negative (NEGATIVE) Ur Oxycodone Screen Negative (NEGATIVE) Ur Propoxyphene Screen Negative (NEGATIVE) Ur Barbituates Screen Negative (NEGATIVE) Ur Tricyclics Screen Negative (NEGATIVE) Ur Phencyclidine Scrn Negative (NEGATIVE) Ur Amphetamine Screen Negative (NEGATIVE) Urine MDMA Screen Negative (NEGATIVE) U Benzodiazepines Scrn Positive H (NEGATIVE) U Cocaine Metab Screen Negative (NEGATIVE) U Marijuana (THC) Screen Negative (NEGATIVE) Ethyl Alcohol (<0.03) % Med Orders - Current: Current Medications Acetaminophen (Tylenol) 650 mg PO Q4H PRN PRN Reason: Pain (Mild 1-3)/fever Folic Acid (Folic Acid) 1 mg PO DAILY [facility] Last Admin: 01/02/18 08:26 Dose: 1 mg Ibuprofen (Motrin) 400 mg PO Q6H PRN PRN Reason: Pain (mild 1-3) Lorazepam (Ativan) 0 mg PO ASDIRECTED PRN; Protocol PRN Reason: Agitation Last Admin: 01/01/18 21:24 Dose: 1 mg Multivitamins/Minerals/Vitamin C (Tab-A-Florin) 1 tab PO DAILY [facility] Last Admin: 01/02/18 08:26 Dose: 1 tab Sodium Chloride (Saline Flush) 10 ml FLUSH ASDIRECTED PRN PRN Reason: Keep Vein Open Last Admin: 12/31/17 17:56 Dose: 10 ml Sodium Chloride (Saline Flush) 10 ml FLUSH ASDIRECTED PRN PRN Reason: Keep Vein Open Thiamine HCl (Vitamin B-1) 100 mg PO DAILY [facility] Last Admin: 01/02/18 08:26 Dose: 100 mg Discontinued Medications Chlordiazepoxide HCl (Librium) 25 mg PO Q8H [facility] Last Admin: 12/30/17 20:06 Dose: Not Given Chlordiazepoxide HCl (Librium) 50 mg PO Q4H [facility] PRN Reason: Taper Stop: 01/03/18 18:29 Last Admin: 12/30/17 20:07 Dose: Not Given Clonidine HCl (Catapres) 0.1 mg PO Q6H PRN PRN Reason: Adrenergic Systems Sodium Chloride (Normal Saline) 1,000 mls @ 999 mls/hr IV .BOLUS ONE Stop: 12/30/17 18:55 Last Admin: 12/30/17 17:55 Dose: 999 mls/hr Dextrose/Sodium Chloride (Dextrose 5%-Normal Saline) 1,000 mls @ 125 mls/hr IV ASDIRECTED [facility] Last Admin: 12/31/17 11:49 Dose: 125 mls/hr Sodium Chloride (Normal Saline) 1,000 mls @ 999 mls/hr IV .BOLUS ONE Stop: 12/30/17 17:50 Last Admin: 12/30/17 16:55 Dose: 999 mls/hr Lorazepam (Ativan) 1 mg IVPUSH ONETIME ONE Stop: 12/30/17 16:59 Last Admin: 12/30/17 17:06 Dose: 1 mg Magnesium Oxide (Magnesium Oxide) 400 mg PO ONETIME ONE Stop: 12/30/17 18:30 Last Admin: 12/30/17 20:20 Dose: 400 mg Metoprolol Tartrate (Lopressor) 25 mg PO Q6H PRN PRN Reason: See Label Comment Pantoprazole Sodium (Protonix Iv) 40 mg IV DAILY [facility] Last Admin: 12/30/17 20:22 Dose: 40 mg Pantoprazole Sodium (Protonix Iv) 40 mg IV Q24H [facility] Last Admin: 12/31/17 17:52 Dose: 40 mg Potassium Chloride (Potassium Chloride Solution) 40 meq PO BID [facility] Stop: 01/01/18 09:01 Last Admin: 01/01/18 09:38 Dose: 40 meq Thiamine HCl (Vitamin B-1) 100 mg IM ONETIME ONE Stop: 12/30/17 18:30 Last Admin: 12/30/17 20:21 Dose: 100 mg Zolpidem Tartrate (Ambien) 5 mg PO BEDTIME PRN PRN Reason: Sleep - Exam Physical Findings Comments:: General: Alert, Cooperative, No Acute Distress HEENT: Pupils Equal, Mucous Membr. Moist/Whiteash Neck: Supple Lungs: Clear to Auscultation, Normal Respiratory Effort Cardiovascular: Regular Rate, Regular Rhythm GI/Abdominal Exam: Normal Bowel Sounds, Soft, Non-Tender Back Exam: Normal Inspection Extremities: Normal Inspection Skin: Warm. No: Rash Neurological: Strength Equal Bilateral, Cranial Nerves Intact Psy/Mental Status: Normal Mood, Withdrawal Symptoms (minimal/improved cognition- tremulousness.) *Q Meaningful Use (DIS) - VTE *Q VTE Criteria *Q: VTE Anticoagulation Contraindications: Med/TX Not Indicated/Need - Stroke *Q Stroke Criteria *Q: - AMI *Q AMI Criteria *Q:
== END 2018-01-02 16:55 | disposition home or self-care (01) | DRG 897 ==
LOC: FB.ED 16:38 → FB.ICU 18:19 → FB.MS 12-31 13:11
PROVIDERS: ADMIT Emergency Medicine; ATTEND Family Medicine
DX: F10.232 Alcohol dependence with withdrawal with perceptual disturbance (principal); E87.2 Acidosis; Y90.0 Blood alcohol level of less than 20 mg/100 ml; E87.6 Hypokalemia; E87.8 Other disorders of electrolyte and fluid balance, not elsewhere classified; F32.9 Major depressive disorder, single episode, unspecified; Z87.891 Personal history of nicotine dependence; Z91.5 Personal history of self-harm
CPT/HCPCS: 36415; 70450; 80053; 80305; 81001; 82140; 83735; 85025; 93005; 96361; 96365; 96375; 97165-GO; 97530-GO; 97535-GO; 99285; A9270-GY; C9113; G0480; J2060; J3411; J7040; J7050